=== PATIENT | male | born 1980 | race Hispanic/Latino ===

== ENCOUNTER 2018-01-31 12:23 | Emergency (ER) | payer OTHER ==
[2018-01-31 12:32] VITALS: RESP 18; TEMP 98.4
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
[2018-01-31 14:32] VITALS: BP 136/73; PULSE 76; O2SAT 98
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
== END 2018-01-31 14:31 | disposition home or self-care (01) ==
LOC: ED 12:23
DX: M25.522 Pain in left elbow (principal); M25.562 Pain in left knee; V49.49XA Driver injured in collision with other motor vehicles in traffic accident, initial encounter; W22.11XA Striking against or struck by driver side automobile airbag, initial encounter; Y92.410 Unspecified street and highway as the place of occurrence of the external cause